=== PATIENT | male | born 1980 | race Hispanic/Latino ===

== ENCOUNTER 2025-04-04 16:27 | Emergency (ER) | payer MEDICARE, OTHER ==
[~2025-04-04] VITALS: Ht 157.5 cm; Wt 87.5 kg
[~2025-04-04 16:27] MED LIST: CLOBETASOL PRO118 ML TOP; HYDROCODON-ACE1 EA10 PO; PRAVASTATIN SOD40 MG PO; TRIAMCINOLONE A15 G1 TOP
[2025-04-04 17:22] VITALS: BP 000/00
== END 2025-04-04 17:22 | disposition home or self-care (01) ==
LOC: ED 16:27
DX: T65.891A Toxic effect of other specified substances, accidental (unintentional), initial encounter (principal); Z88.8 Allergy status to other drugs, medicaments and biological substances
CPT/HCPCS: 99283